=== PATIENT | female | born 1975 | race Caucasian/White ===

== ENCOUNTER 2017-09-17 13:43 | Emergency (ER) | payer MEDICAID, SELFPAY ==
[2017-09-17 13:44] VITALS: BP 166/109; PULSE 86; RESP 17; TEMP 36.8; O2SAT 99; BMI 54.9
[2017-09-17 14:01] VITALS: BP 142/86
--- NOTE | 2017-09-17 14:46 | EKG12_ITS ---
Test Reason : CP Blood Pressure : / mmHG Vent. Rate : 066 BPM Atrial Rate : 066 BPM P-R Int : 144 ms QRS Dur : 096 ms QT Int : 386 ms P-R-T Axes : 028 024 015 degrees QTc Int : 404 ms Normal sinus rhythm Normal ECG Confirmed by KRISTY FOSS, KALEIGH ([id number]), assistant production editor SIVAN DYSON ([id number]) on 09/21/2017 1:11:52 PM Referred By: SURI Confirmed By:KALEIGH WAGNER MD
--- NOTE | 2017-09-17 15:00 | RAD_ITS ---
STUDY: X-RAY CHEST REASON FOR EXAM: Female, 42 years old. Chest pain. TECHNIQUE: Single AP portable view of the chest. COMPARISON: Comparison is made with prior study dated April 11, 2017. FINDINGS: The lungs are clear and expanded. There is no demonstrated pleural abnormality. Normal size heart. Normal mediastinum and saima. Normal visualized pulmonary arteries. Normal visualized aortic arch and descending thoracic aorta. Normal visualized thoracic spine. Normal visualized ribs, clavicles, and shoulders. There is no demonstrated abnormality of the visualized soft tissue structures of the upper abdomen. RAD/Chest 1 View (Portable) IMPRESSION: Normal x-ray examination of the chest. Electronically Signed: Ky Clay MD at 15:22 EST Tel [phone], Service support ,
[2017-09-17] MEDS: Ketorolac 30 MG/ML Syringe IV (15:11)
--- NOTE | 2017-09-17 15:22 | NURSING ---
D DIMER 0.60. DR MCCORD AWARE
--- NOTE | 2017-09-17 15:44 | CT_ITS ---
STUDY: CTA CHEST REASON FOR EXAM: Female, 42 years old. Right upper chest pain x4 days RADIATION DOSAGE (If Supplied By Facility): CTDIvol = ( 20.05 ) mGy, DLP = ( 692.17 ) mGycm TECHNIQUE: The examination was performed with the intravenous administration of 100 ml of Isovue 370 contrast material. Post-processing of the angiographic images was performed, with multiplanar reformation and 3D reconstruction. Individualized dose optimization techniques were used for this CT. COMPARISON: None. FINDINGS: Normal enhancement of the main pulmonary artery and right and left pulmonary arteries. Normal enhancement of the bilateral peripheral pulmonary arteries. There is no demonstrated pulmonary embolism. Normal thoracic aorta and visualized great vessels. There is no demonstrated aortic dissection. There is cardiomegaly. Normal mediastinum. Normal hilar regions. Normal visualized trachea and bronchi. The lungs are well expanded. Normal pulmonary parenchyma. Normal pleura. Normal chest wall structures. Normal osseous structures. Normal visualized upper abdomen. CT/CTA Chest W/WO Contrast IMPRESSION: Normal CTA chest examination, without a demonstrated pulmonary embolism or arterial dissection. Mild cardiomegaly. Electronically Signed: Arian Alatorre DO at 18:34 EST Tel , Service support ,
[2017-09-17 16:03] VITALS: BP 137/77; PULSE 63; RESP 16; O2SAT 100
[2017-09-17] MEDS: 0.9% Normal Saline 1,000 ML 999 ML IV (16:07)
[2017-09-17 16:35] LABS: Anion Gap 9 (5-15); BUN 10 mg/dL (7-18); BUN/Creat Ratio 14.3 RATIO (10-20); Calcium,Total 8.6 mg/dL (8.5-10.1); Chloride 107 mmol/L (98-107); EST Glomerular Filtration Rate 97 mL/min (>60); Est Glom Filt Rate - Afr Amer 118 mL/min (>60); Estimated Creatinine Clearance 86.61 ml/min; Glucose 85 mg/dL (74-106); Potassium 3.8 mmol/L (3.5-5.1); Sodium Level 140 mmol/L (136-145)
--- NOTE | 2017-09-17 18:04 | ED.DCSUM_ITS ---
- ER Visit Summary Date of Service: 09/17/17 Chief Complaint: Right sided upper chest pleuritic pain History of Present Illness: The patient is a 42 F only senior past medical history is consistent with pleurisy and vasovagal syncope. Patient states since Thursday approximately 1 week she has had right upper pleuritic chest pain. Worse with deep breathing or movement. She has never had a DVT or PE. She denies any hemoptysis. She denies any significant shortness of breath. She denies any leg pain or swelling. She has had pleurisy before and states this feels similar. Not on control pills denies any recent travel or surgery. No leg pain or swelling. Physical Examination: Appearing middle-aged female. Vital signs are stable afebrile. Pulse ox 90% room air no signs of hypoxia. HEENT exam unremarkable. Neck nontender no JVD. Lungs clear to auscultation bilaterally. No rales, rhonchi or wheezing. Heart regular rate and rhythm no murmur. Chest wall is nontender. Her pain is in the right upper chest is not reproducible. There is no ecchymosis or bruising. No subcu air or crepitance. Abdomen is obese but soft. No peritoneal signs. Normal bowel sounds. Nontender. She is moving all 4 extremities. They are neurovascularly intact. Calves are nontender without edema or cords. Neurologic exam is unremarkable. Test Results: Chest x-ray shows no acute abnormality read both myself and the radiologist. EKG sinus rhythm rate is 66 with no acute abnormality. D-dimer was slightly elevated 0.6. A CTA of the chest is pending. Emergency Department Course and Treatment: I think this is pleurisy. Due to the elevated d-dimer I did get a CT of the chest. That will be checked out in the afternoon physician if the CTA is negative patient be discharged home on prednisone for pleurisy. Treatment Plan: Prednisone 40 mg a day for 10 days if needed. Disposition: Disposition per CTA results. Impression: Acute right-sided chest pain secondary to pleurisy This note was generated with [employer] dictation software. It may contain incorrect words, spelling, and punctuation that were not noted in review of the chart prior to signing ED Disposition - Plan for ED Patient: Chief Complaint: Chest Other Referrals: Nava Hernandez MD [Primary Care Provider] -
--- NOTE | 2017-09-17 18:04 | ED.DEP ---
ED Disposition - Plan for ED Patient: Disposition: Home or Assisted Living Chief Complaint: Chest Other Instructions: ED Chest Pain Pleurisy Prescriptions: Prednisone [Deltasone] 40 mg PO DAILY 10 Days tab Referrals: Nava Hernandez MD [Primary Care Provider] - 1 Week if not improving Additional Instructions: Prednisone daily for lung inflammation. As inflammation gets better the pain should resolve. Return if feeling worse. Or follow-up your primary care physician if not getting better.
[2017-09-17 19:17] VITALS: BP 127/72; PULSE 70; RESP 16; O2SAT 98
== END 2017-09-17 19:26 | disposition home or self-care (01) ==
PROVIDERS: Emergency Provider Emergency Medicine; Family Provider Family Medicine; PCP Family Medicine
DX: R09.1 Pleurisy (principal); R74.8 Abnormal levels of other serum enzymes
CPT/HCPCS: 71045; 71275; 80048; 85379; 93005; 96361; 96374; 99284; J7030; Q9967; A4216

== ENCOUNTER 2018-02-22 15:12 | Emergency (ER) | payer MEDICAID, SELFPAY ==
[2018-02-22 15:14] VITALS: BP 156/95; PULSE 87; RESP 16; TEMP 36.6; O2SAT 100; BMI 52.9
[2018-02-22] MEDS: Ketorolac 30 MG/ML Syringe IV (16:26)
--- NOTE | 2018-02-22 16:30 | RAD_ITS ---
STUDY: X-RAY CHEST REASON FOR EXAM: Female, 42 years old. Right sided upper abdominal pain. Chest pain. TECHNIQUE: PA and lateral views of the chest. COMPARISON: September 17, 2017. FINDINGS: There is a mildly improved inspiratory effort when compared to the prior study. There is no new infiltrate or mass. There is no demonstrated pleural abnormality. Normal size heart. Normal mediastinum and saima. Normal visualized pulmonary arteries. Normal visualized aortic arch and descending thoracic aorta. There is minimal scoliosis and degenerative changes of the thoracic spine. Normal visualized ribs, clavicles, and shoulders. There is no demonstrated abnormality of the visualized soft tissue structures of the upper abdomen. RAD/Chest PA and Lateral IMPRESSION: No acute cardiopulmonary disease or major interval change. Electronically Signed: John Paulson DO at 16:56 EDT Tel [phone], Service support ,
[2018-02-22 16:46] LABS: Absolute Lymphocyte Count 2.55 X10^3/ul (0.83-4.51); Absolute Neutrophil Count 4.8 X10^3/uL (2.0-7.7); Basophil# 0.02 X10^3/uL; Basophil% 0.2 % (0-1); Eosinophil# 0.34 X10^3/uL; Hematocrit 35.4 % (37-47); Hemoglobin 10.2 g/dl (12.0-15.0); Lymphocyte # 2.55 X10^3/ul (4.0); Lymphocyte % 30.1 % (19-41); Mean Corp Hgb Conc 28.8 g/gl (32-36); Mean Corpuscular Hgb 21.2 pg (27.0-32.0); Mean Corpuscular Volume 73.4 fL (81-99); Monocyte# 0.74 X10^3/uL; Monocyte% 8.7 % (0-10); Neutrophil # 4.83 X10^3/uL (2.7-7.7); Platelet Count 392 K/mm3 (150-450); RBC Distribution Width CV 15.6 % (11.6-14.6); RBC Distribution Width SD 41.6 fl (35.1-43.9); Red Blood Count 4.82 M/mm3 (4.2-5.4); White Blood Count 8.5 K/mm3 (4.4-11.0)
[2018-02-22 16:52] LABS: POSITIVE DIFFERENTIAL NO
[2018-02-22 16:53] LABS: Differential Indicated SCAN CRITERIA MET; POSITIVE COUNT NO; POSITIVE MORPHOLOGY YES
[2018-02-22 17:10] VITALS: BP 122/71; PULSE 72; RESP 16; O2SAT 100
[2018-02-22 17:19] LABS: ALB/GLOB Ratio 0.8 RATIO (0.9-2.4); AST(SGOT) 17 U/L (15-37); Alanine Aminotransfer ALT/SGPT 16 U/L (13-56); Albumin, Serum 3.6 g/dL (3.2-5.0); Alkaline Phosphatase 80 U/L (45-117); Anion Gap 7 (5-15); BUN 9 mg/dL (7-18); BUN/Creat Ratio 11.5 RATIO (10-20); Calcium,Total 8.8 mg/dL (8.5-10.1); Chloride 108 mmol/L (98-107); Creatinine, Serum 0.78 mg/dL (0.55-1.02); EST Glomerular Filtration Rate 85 mL/min (>60); Est Glom Filt Rate - Afr Amer 103 mL/min (>60); Estimated Creatinine Clearance 77.72 ml/min; Globulin 4.7 g/dL (2.2-4.2); Glucose 77 mg/dL (74-106); Lipase 125 U/L (73-393); Potassium 3.6 mmol/L (3.5-5.1); Protein, Total 8.3 g/dL (6.4-8.2); Sodium Level 141 mmol/L (136-145)
--- NOTE | 2018-02-22 17:47 | ED.VISSUMM ---
- ER Visit Summary Date of Service: 02/22/18 Chief Complaint: Abdominal pain History of Present Illness: The patient is a 42 F who presents with abdominal pain. It is been present for 2 weeks. She states has been working sitting. She describes it as an aching or pressure-like pain in the right upper quadrant. She has had a cholecystectomy. She denies any nausea vomiting diarrhea urinary shortness of breath or cough. Physical Examination: Afebrile vitals are normal Moist mucous membranes Heart regular rate and rhythm Lungs are clear Abdomen soft nondistended with right upper quadrant tenderness to palpation no guarding no rebound. No rash Test Results: CBC BMP hepatic function lipase notable only for hemoglobin 10.2. Chest x-ray shows no acute process. Emergency Department Course and Treatment: Patient was treated with IV fluids and Toradol here. Although she does have reproducible abdominal tenderness pulmonary etiologies were considered as well. Chest x-ray is normal. PERC rule negative. Patient advised to follow-up with her primary care physician. She understands return for new or worsening symptoms. She was instructed on specific signs and symptoms to monitor for. She was discharged. Treatment Plan: [] Disposition: Discharge Impression: Right upper quadrant abdominal pain This note was generated with [employer] dictation software. It may contain incorrect words, spelling, and punctuation that were not noted in review of the chart prior to signing ED Disposition - Plan for ED Patient: Chief Complaint: Abd Pain Referrals: Nava Hernandez MD [Primary Care Provider] -
--- NOTE | 2018-02-22 17:49 | ED.DEP ---
ED Disposition - Plan for ED Patient: Chief Complaint: Abd Pain Instructions: ED Abdominal Pain Unkn Cause Referrals: Nava Hernandez MD [Primary Care Provider] -
[2018-02-22 18:02] LABS: Platelet Estimate ADEQUATE (ADEQ)
[2018-02-22 18:03] LABS: Anisocytosis RARE
== END 2018-02-22 17:56 | disposition home or self-care (01) ==
PROVIDERS: Emergency Provider Emergency Medicine; Family Provider Family Medicine; PCP Family Medicine
DX: R10.11 Right upper quadrant pain (principal); Z90.49 Acquired absence of other specified parts of digestive tract; Z79.899 Other long term (current) drug therapy
CPT/HCPCS: 71046; 80053; 83690; 85025; 96374; 99283; A4216

== ENCOUNTER → 2019-05-14 08:53 | Outpatient (CLI) | payer MEDICAID, SELFPAY ==
[2019-05-14 09:41] LABS: Absolute Lymphocyte Count 1.88 X10^3/uL (0.83-4.51); Absolute Neutrophil Count 3.1 X10^3/uL (2.0-7.7); Basophil# 0.05 X10^3/uL; Basophil% 0.9 % (0-1); Eosinophils% 5.1 % (0-5); Hematocrit 36.1 % (37-47); Hemoglobin 10.2 g/dL (12.0-15.0); Lymphocyte # 1.88 X10^3/ul (4.0); Lymphocyte % 32.2 % (19-41); Mean Corp Hgb Conc 28.3 g/dL (32-36); Mean Corpuscular Hgb 20.7 pg (27.0-32.0); Mean Corpuscular Volume 73.4 fL (81-99); Mean Platelet Vol. 9.1 fl (6.2-12.0); Monocyte# 0.51 X10^3/uL; Monocyte% 8.7 % (0-10); NRBC Flagged by Analyzer 0 % (0-5); Neutrophil # 3.09 X10^3/uL (2.7-7.7); Neutrophil % 52.9 % (47-70); Platelet Count 426 K/mm3 (150-450); RBC Distribution Width CV 15.7 % (11.6-14.6); RBC Distribution Width SD 40.9 fl (35.1-43.9); Red Blood Count 4.92 M/mm3 (4.2-5.4); White Blood Count 5.8 K/mm3 (4.4-11.0)
[2019-05-14 10:10] LABS: Hemoglobin A1c 5.1 % (4.2-6.3)
[2019-05-14 10:22] LABS: ALB/GLOB Ratio 0.9 RATIO (0.9-2.4); AST(SGOT) 15 U/L (15-37); Alanine Aminotransfer ALT/SGPT 17 U/L (13-56); Albumin, Serum 3.7 g/dL (3.2-5.0); Alkaline Phosphatase 81 U/L (45-117); Anion Gap 7 (5-15); BUN 9 mg/dL (7-18); BUN/Creat Ratio 11.8 RATIO (10-20); Calcium,Total 8.6 mg/dL (8.5-10.1); Chloride 108 mmol/L (98-107); Cholesterol 136 mg/dL (200); Creatinine, Serum 0.76 mg/dL (0.55-1.02); EST Glomerular Filtration Rate 88 mL/min (>60); Est Glom Filt Rate - Afr Amer 106 mL/min (>60); Globulin 4.3 g/dL (2.2-4.2); Glucose 90 mg/dL (74-106); High Density Lipoprotein 46 mg/dL; Potassium 3.9 mmol/L (3.5-5.1); Sodium Level 141 mmol/L (136-145); Thyroid Stim Hormone (TSH) 2.26 uIU/mL (0.358-3.74); Triglycerides 72 mg/dL; Very Low Density Lipoprotein 14 mg/dL (5-40)
== END ==
PROVIDERS: Family Provider Family Medicine; PCP Family Medicine; Referring Provider Family Medicine; Visit Provider Family Medicine
DX: R55 Syncope and collapse (principal); F41.1 Generalized anxiety disorder; E66.01 Morbid (severe) obesity due to excess calories
CPT/HCPCS: 36415; 80053; 80061; 83036; 84443; 85025

== ENCOUNTER → 2019-09-17 08:22 | Outpatient (CLI) | payer MEDICAID, SELFPAY ==
[2019-09-17 09:02] LABS: Absolute Lymphocyte Count 1.47 X10^3/uL (0.83-4.51); Absolute Neutrophil Count 3.6 X10^3/uL (2.0-7.7); Basophil# 0.04 X10^3/uL; Basophil% 0.7 % (0-1); Eosinophil# 0.33 X10^3/uL; Eosinophils% 5.5 % (0-5); Hematocrit 36.3 % (37-47); Hemoglobin 10.2 g/dL (12.0-15.0); Lymphocyte # 1.47 X10^3/ul (4.0); Lymphocyte % 24.6 % (19-41); Mean Corp Hgb Conc 28.1 g/dL (32-36); Mean Corpuscular Hgb 21.5 pg (27.0-32.0); Mean Corpuscular Volume 76.4 fL (81-99); Mean Platelet Vol. 9.3 fl (6.2-12.0); Monocyte# 0.54 X10^3/uL; NRBC Flagged by Analyzer 0 % (0-5); Neutrophil # 3.57 X10^3/uL (2.7-7.7); Neutrophil % 59.9 % (47-70); Platelet Count 359 K/mm3 (150-450); RBC Distribution Width CV 16.5 % (11.6-14.6); RBC Distribution Width SD 45.7 fl (35.1-43.9); Red Blood Count 4.75 M/mm3 (4.2-5.4)
[2019-09-17 09:39] LABS: Iron 21 ug/dL (50-170); Iron Binding Capacity,Total 394 ug/dL (250-450); PERCENT IRON SATURATION 5.3 % (15.0-55.0)
== END ==
PROVIDERS: Family Provider Family Medicine; PCP Family Medicine; Referring Provider Family Medicine; Visit Provider Family Medicine
DX: D64.9 Anemia, unspecified (principal)
CPT/HCPCS: 36415; 83540; 83550; 85025

== ENCOUNTER → 2020-03-22 14:57 | Outpatient (CLI) | payer MEDICAID, SELFPAY ==
[2020-03-22 15:52] LABS: Absolute Lymphocyte Count 2.61 X10^3/uL (0.83-4.51); Absolute Neutrophil Count 5.1 X10^3/uL (2.0-7.7); Basophil# 0.03 X10^3/uL; Basophil% 0.3 % (0-1); Eosinophil# 0.29 X10^3/uL; Eosinophils% 3.3 % (0-5); Hematocrit 38.4 % (37-47); Hemoglobin 11.2 g/dL (12.0-15.0); Lymphocyte # 2.61 X10^3/ul (4.0); Lymphocyte % 29.6 % (19-41); Mean Corp Hgb Conc 29.2 g/dL (32-36); Mean Corpuscular Hgb 23.8 pg (27.0-32.0); Mean Corpuscular Volume 81.5 fL (81-99); Mean Platelet Vol. 9.6 fl (6.2-12.0); Monocyte# 0.76 X10^3/uL; Monocyte% 8.6 % (0-10); NRBC Flagged by Analyzer 0 % (0-5); Neutrophil # 5.11 X10^3/uL (2.7-7.7); Neutrophil % 57.9 % (47-70); Platelet Count 367 K/mm3 (150-450); RBC Distribution Width SD 47.9 fl (35.1-43.9); Red Blood Count 4.71 M/mm3 (4.2-5.4); White Blood Count 8.8 K/mm3 (4.4-11.0)
[2020-03-22 16:27] LABS: Iron 23 ug/dL (50-170); Iron Binding Capacity,Total 426 ug/dL (250-450); PERCENT IRON SATURATION 5.4 % (15.0-55.0)
== END ==
PROVIDERS: PCP Family Medicine; Referring Provider Family Medicine; Visit Provider Family Medicine
DX: D64.9 Anemia, unspecified (principal); G25.81 Restless legs syndrome
CPT/HCPCS: 36415; 83540; 83550; 85025

== ENCOUNTER 2020-12-11 10:53 | Emergency (ER) | payer MEDICAID, SELFPAY ==
[2020-12-11 10:55] VITALS: BP 145/77; PULSE 76; PULSE 82; RESP 17; RESP 18; TEMP 37.3; O2SAT 96; O2SAT 97; BMI 56.6
[2020-12-11 10:58] VITALS: BP 145/77; PULSE 85; RESP 17; TEMP 37.3; O2SAT 96
--- NOTE | 2020-12-11 11:02 | EX.ED.DYSGE1 ---
HPI History of Present Illness Chief Complaint: Weakness Detail of Chief Complaint: Orthostatic symptoms, poor p.o. intake, positive Covid Informant: patient Onset/Context/Timing Onset: Days Context: Sudden Onset Timing: Continuous Quality: Covid symptoms started 9 days ago. Location: Home Current Severity: Mild Maximum Severity: Severe Worsened by: Upright position Relieved by: Nothing Associated Symptoms Associated Symptoms: None, myalgias, headache, orthostatic symptoms and poor p.o. intake Narrative Narrative: Patient is a 45-year-old woman who had a positive Covid test last week. Symptoms started 9 days ago. She lives with her boyfriend. She states she has not been able to eat because of loss of appetite. She complains of generalized weakness and myalgias. She does report headache. Headache resolved with Tylenol and NSAID. She denies double vision, blurred vision loss of vision. Denies ringing in ears or decreased hearing. She does report nasal congestive symptoms. She does report mild sore throat. She does have a cough which is nonproductive. She does report mild shortness of breath with walking. She gets orthostatic symptoms when she is upright. She apparently passed out when she was upright 2 days ago. She denies black or maroon-colored stool. She does report dysuria noted this morning. She denies hematuria or frequency. She states has had decreased urine output. She has not noted a rash. She denies any paresthesia, anesthesia or motor weakness. She denies problems with balance. Prior similar symptoms: Yes Recent Illness/Hospitalization: Yes PFSH PFSH Home Medications ferrous sulfate 325 mg PO DAILY 12/11/20 [History Last Taken Unknown] loperamide [Imodium A-D] 2 mg PO Q4H PRN #10 cap 12/11/20 [Rx Last Taken Unknown] lorazepam 1 mg PO PRN PRN 12/11/20 [History Last Taken Unknown] ondansetron 4 mg PO Q8H PRN 3 Days tab 12/11/20 [Rx Last Taken Unknown] sertraline 100 mg PO DAILY 12/11/20 [History Last Taken Unknown] Allergy/AdvReac Type Severity Reaction Status Date / Time cortisone [Cortisone] Allergy Swelling Verified 12/11/20 10:55 amoxicillin [From Augmentin] AdvReac Diarrhea Verified 12/11/20 10:55 clavulanic acid AdvReac Diarrhea Verified 12/11/20 10:55 [From Augmentin] Surgical History delivery delivered History of cholecystectomy tumar removed behind Lf ear Social History (Updated 12/11/20 @ 11:[address] Don Lopez MD) household members: significant other Smoking Status: Never smoker second hand exposure: Yes alcohol intake: never substance use type: does not use ROS ROS ED Constitutional Constitutional ED: Reports chills, fever(s) and subjective; Denies sweats or weight loss Eyes Eyes: Denies blurry vision, change in vision or diplopia ENT ENT ED: Reports rhinorrhea and sore throat; Denies ear pain Cardiovascular Cardiovascular: Reports chest pain; Denies palpitations or racing heartbeat Respiratory/Chest Respiratory/Chest: Reports cough and dyspnea; Denies dyspnea on exertion or sputum Gastrointestinal Gastrointestinal: Reports abdominal pain, diarrhea and nausea; Denies constipation or vomiting Genitourinary Genitourinary ED: Reports dysuria; Denies hematuria or urinary frequency Musculoskeletal Musculoskeletal: Reports myalgias; Denies back pain or neck pain Integumentary Denies Abrasions or rash Neurologic Neurologic: Denies headache(s) or paresthesias Psychiatric Psychiatric: Reports depression Endocrine Endocrinology: Denies polydipsia, polyphagia or polyuria Allergic/Immunologic Allergic/Immunologic ED: Denies urticaria EXAM Physical Exam Const Vital Signs: 12/11/20 10:55 12/11/20 10:58 12/11/20 11:30 Temperature 99.1 F 99.1 F Temperature Source Temporal Temporal Pulse Rate 76 85 Respiratory Rate 17 17 Respiratory Effort Normal Respiratory Pattern Normal Blood Pressure 145/77 H 145/77 H Blood Pressure Mean 99 99 Pulse Ox 96 96 Oxygen Delivery Method Room Air Room Air Positive well nourished, well developed and obese General Appearance ED: well developed and other Patient appears ill and pale. Nutritional Appearance: obese HEENT Reports dry mucous membranes Mouth ED: Yes dry mucous membranes Mouth: dry mucous membranes Eyes PERRL and EOMs intact bilaterally General Eye ED: Negative for pale conjunctiva or scleral icterus Neck no lymphadenopathy and supple Chest Wall inspection of chest normal and palpation of chest normal Resp normal respiratory effort and clear to auscultation bilaterally Cardio regular rate, regular rhythm, S1 normal heart sound, S2 normal heart sound and no murmurs GI normal to inspection, nondistended, normoactive bowel sounds Back/Spine no CVA tenderness Thoracic Spine / Upper Back: Negative for paraspinal muscle tenderness Lumbar Spine / Lower Back: Negative for lumbar spinal tenderness Extremity normal to inspection General Extremety ED: Negative for edema or tenderness General Extremity: Negative for edema Neuro oriented x3, CN's II-XII intact bilaterally and no sensory deficits noted Sensorium / Orientation: alert Motor Exam: strength 5/5 throughout and general weakness Psych mental status grossly normal Skin no rashes or lesions noted MDM MDM MDM Narrative Medical decision making narrative: Patient presents with orthostatic symptoms most likely due to poor p.o. intake. Clinically she is dehydrated. CBC was obtained to rule out anemia since she appears pale. Electrolyte panel was obtained to assess renal function and CO2. She was treated with Zofran for her nausea and Imodium for her diarrhea. Suspect her syncopal episode was due to orthostatic hypotension 2 days ago. Lab Data Attestation: I reviewed the patient's lab results. Labs: Laboratory Results - last 24 hr 12/11/20 12/11/20 11:34 11:34 WBC 2.5 L RBC 5.44 H Hgb 14.7 Hct 47.2 H MCV 86.8 MCH 27.0 MCHC 31.1 L RDW Std Deviation 43.2 RDW Coeff of Sarah 13.7 Plt Count 223 MPV 9.4 Immature Gran % (Auto) 0.000 Neut % (Auto) 62.3 Lymph % (Auto) 26.1 [place] % (Auto) 10.4 H Eos % (Auto) 0.8 Baso % (Auto) 0.4 Absolute Neuts (auto) 1.6 L Absolute Lymphs (auto) 0.65 L Nucleated RBC % 0 Sodium 142 Potassium 3.4 L Chloride 107 Carbon Dioxide 29.0 Anion Gap 6 BUN 3 L Creatinine 0.69 Estim Creat Clear Calc 85.17 Est GFR (MDRD) Af Amer 118 Est GFR (MDRD) Non-Af 98 BUN/Creatinine Ratio 4.4 L Glucose 97 Calcium 8.5 Potassium is 3.4 due to diarrhea. This is insignificant. Renal function is normal. Patient is neutropenic due to Covid. Treatment and Re-Evaluation Comments:: Patient was reassessed at 1235. She states she feels better. She looks better. She was informed of her test results. She was informed that she needs to drink more fluids. Vital Sign Attestation:: Vital signs were last noted at 1245. Discharge Plan Triage Chief Complaint: Weakness ED Provider: Don Lopez Dx/Rx/DC Orders Clinical Impression: COVID-19, Dehydration, mild, Neutropenia due to infection, Hypokalemia due to loss of potassium, Abdominal pain, vomiting, and diarrhea Instructions: Coronavirus Disease 2019 (COVID-19): Caring for Yourself or Others, ED Dehydration (Adult), ED Hypokalemia, ED Vomiting and Diarrhea ... Prescriptions: New ondansetron 4 mg tablet,disintegrating 4 mg PO Q8H PRN (Reason: nausea and vomiting) 3 Days RF: 0 loperamide [Imodium A-D] 2 mg capsule 2 mg PO Q4H PRN (Reason: loose stool) Qty: 10 RF: 0 No Action sertraline 100 mg tablet 100 mg PO DAILY RF: 0 ferrous sulfate 325 mg (65 mg iron) tablet 325 mg PO DAILY RF: 0 lorazepam 1 mg tablet 1 mg PO PRN PRN (Reason: Anxiety) RF: 0 Primary Care Provider: Boris Chou Referrals: Boris Chou MD [Primary Care Provider] -
[2020-12-11] MEDS: 0.9% Normal Saline 1,000 ML 1000 ML IV (11:31)
[2020-12-11] MEDS: Ondansetron 4 MG/2 ML Vial IV (11:32)
[2020-12-11 11:47] LABS: Absolute Lymphocyte Count 0.65 X10^3/uL (0.83-4.51); Absolute Neutrophil Count 1.6 X10^3/uL (2.0-7.7); Basophil# 0.01 X10^3/uL; Basophil% 0.4 % (0-1); Eosinophil# 0.02 X10^3/uL; Eosinophils% 0.8 % (0-5); Hematocrit 47.2 % (37-47); Hemoglobin 14.7 g/dL (12.0-15.0); Lymphocyte # 0.65 X10^3/ul (0.83-4.51); Lymphocyte % 26.1 % (19-41); Mean Corp Hgb Conc 31.1 g/dL (32-36); Mean Corpuscular Volume 86.8 fL (81-99); Mean Platelet Vol. 9.4 fl (6.2-12.0); Monocyte# 0.26 X10^3/uL; Monocyte% 10.4 % (0-10); NRBC Flagged by Analyzer 0 % (0-5); Neutrophil # 1.55 X10^3/uL (2.7-7.7); Neutrophil % 62.3 % (47-70); Platelet Count 223 K/mm3 (150-450); RBC Distribution Width CV 13.7 % (11.6-14.6); RBC Distribution Width SD 43.2 fl (35.1-43.9); Red Blood Count 5.44 M/mm3 (4.2-5.4); White Blood Count 2.5 K/mm3 (4.4-11.0)
[2020-12-11 11:57] LABS: Anion Gap 6 (5-15); BUN 3 mg/dL (7-18); BUN/Creat Ratio 4.4 RATIO (10-20); Calcium,Total 8.5 mg/dL (8.5-10.1); Chloride 107 mmol/L (98-107); Creatinine, Serum 0.69 mg/dL (0.55-1.02); EST Glomerular Filtration Rate 98 mL/min (>60); Est Glom Filt Rate - Afr Amer 118 mL/min (>60); Estimated Creatinine Clearance 85.17 ml/min; Glucose 97 mg/dL (74-106); Potassium 3.4 mmol/L (3.5-5.1); Sodium Level 142 mmol/L (136-145)
[2020-12-11 13:10] VITALS: BP 141/82; PULSE 79; RESP 18; TEMP 37.1; O2SAT 97
== END 2020-12-11 13:50 | disposition home or self-care (01) ==
LOC: ED 12:05
PROVIDERS: Emergency Provider Emergency Medicine; PCP Family Medicine
DX: U07.1 COVID-19 (principal); E86.0 Dehydration; D70.3 Neutropenia due to infection; E87.6 Hypokalemia; R10.9 Unspecified abdominal pain; R11.10 Vomiting, unspecified; R19.7 Diarrhea, unspecified; E66.9 Obesity, unspecified
CPT/HCPCS: 80048; 85025; 96361; 96374; 99284; J7030; A4216; J2405

== ENCOUNTER → 2022-03-12 | Outpatient (CLI) | payer MEDICAID, SELFPAY ==
[2022-03-12 15:35] LABS: Absolute Lymphocyte Count 2.06 X10^3/uL (0.83-4.51); Absolute Neutrophil Count 4.7 X10^3/uL (2.0-7.7); Basophil# 0.03 X10^3/uL; Basophil% 0.4 % (0-1); Eosinophil# 0.16 X10^3/uL; Eosinophils% 2.1 % (0-5); Hematocrit 36.9 % (37-47); Hemoglobin 11.2 g/dL (12.0-15.0); Lymphocyte # 2.06 X10^3/ul (0.83-4.51); Lymphocyte % 27.1 % (19-41); Mean Corp Hgb Conc 30.4 g/dL (32-36); Mean Corpuscular Hgb 23.5 pg (27.0-32.0); Mean Corpuscular Volume 77.4 fL (81-99); Mean Platelet Vol. 9.7 fl (6.2-12.0); Monocyte# 0.68 X10^3/uL; Monocyte% 8.9 % (0-10); NRBC Flagged by Analyzer 0 % (0-5); Neutrophil # 4.67 X10^3/uL (2.7-7.7); Neutrophil % 61.4 % (47-70); Platelet Count 328 K/mm3 (150-450); RBC Distribution Width CV 14.8 % (11.6-14.6); RBC Distribution Width SD 41.4 fl (35.1-43.9); Red Blood Count 4.77 M/mm3 (4.2-5.4); White Blood Count 7.6 K/mm3 (4.4-11.0)
[2022-03-12 16:07] LABS: Anion Gap 7 (5-15); BUN 8 mg/dL (7-18); BUN/Creat Ratio 10.4 RATIO (10-20); Chloride 107 mmol/L (98-107); Creatinine, Serum 0.77 mg/dL (0.55-1.02); EST Glomerular Filtration Rate 86 mL/min (>60); Est Glom Filt Rate - Afr Amer 104 mL/min (>60); Ferritin 5 ng/mL (8-252); Glucose 86 mg/dL (74-106); Iron 19 ug/dL (50-170); Iron Binding Capacity,Total 424 ug/dL (250-450); PERCENT IRON SATURATION 4.5 % (15.0-55.0); Potassium 3.8 mmol/L (3.5-5.1); Sodium Level 139 mmol/L (136-145)
[2022-03-14 17:18] LABS: ANTINUCLEAR ANTIBODIES DIRECT Negative (Negative)
== END | disposition home or self-care (01) ==
PROVIDERS: PCP Family Medicine; Referring Provider Family Medicine; Visit Provider Family Medicine
DX: R55 Syncope and collapse (principal); E87.6 Hypokalemia; D64.9 Anemia, unspecified; R53.83 Other fatigue
CPT/HCPCS: 36415; 80048; 82533; 82728; 83540; 83550; 85025; 86038

== ENCOUNTER 2022-12-23 13:10 | Emergency (ER) | payer MEDICAID, SELFPAY ==
[2022-12-23 13:13] VITALS: BP 133/80; PULSE 65; RESP 16; TEMP 36.8; O2SAT 99
--- NOTE | 2022-12-23 13:40 | ED.RN ---
PT REQUESTS IV REMOVED, STATES I FEEL PERFECTLY FINE NOW. PT AMBULATED TO BATHROOM, IS DRINKING WATER. PT STATES I DO THIS ALL THE TIME, THERE'S NOTHING MORE YOU CAN DO FOR ME. PT VOICES UNDERSTANDING TO RETURN FOR ANY FURTHER CONCERNS, LEFT WITH MOTHER.
== END 2022-12-23 13:40 | disposition left against medical advice (07) ==
LOC: ED 13:54
PROVIDERS: PCP Family Medicine
DX: Z53.21 Procedure and treatment not carried out due to patient leaving prior to being seen by health care provider (principal)